=== PATIENT | female | born 1955 | race Caucasian/White ===

== ENCOUNTER 2022-01-29 06:50 | Day surgery (SDC) | payer MEDICARE, OTHER ==
[~2022-01-29] VITALS: Ht 165.1 cm; Wt 72.1 kg
[~2022-01-29 06:50] MED LIST: ASPI81CH PO; MELO7.5 PO; MELOXICAM10 MG PO; Percocet 5-3251 EACH PO
--- NOTE | 2022-01-29 13:00 | NUR ---
PT ARRIVED TO THE ROOM AT 1155. SHE IS ALERT AND ORIENTED. PT RATES PAIN AT 4/10 AND DESCRIBES PAIN ACHING. POLAR PACK IN PLACE AND FUNCTIONING. PO PAIN MEDICATION OFFERED. PT PROVIDED WITH CLEAR LIQUIDS AND CRACKERS, SHE IS TOLERATING WELL. PT IS ABLE TO MOVE BLE. TAY FROM PHYSICAL THERAPY NOTIFIED THAT PT IS READY FOR THERAPY AND IS HOPING TO DISCHARGE HOME TODAY.
[2022-01-29] MEDS ORDERED: Percocet 5-3251 EACH PO (15:15)
--- NOTE | 2022-01-29 17:01 | NUR ---
GOALS MET PT HAS CLEARED THERAPY, ABLE TO VOID, TOLERATING PO, AND PAIN MANAGED WITH PO PAIN MEDICATION. PT IS HOPING TO DISCHARGE HOME THIS EVENING. [facility] STATED OK FOR PT TO DC HOME. AWAITING ARRIVAL OF PT'S S/O FOR TRANSPORT HOME.
--- NOTE | 2022-01-29 17:20 | NUR ---
DISCHARGE PT PROVIDED WITH WRITTEN AND VERBAL DISCHARGE INSTRUCTIONS; SHE REPORTED UNDERSTANDING INSTRUCTIONS. PT PROVIDED WITH CLEAN DRESSINGS. PT MET ALL GOALS PRIOR TO DISCHARGE. PT ESCORTED OUT AT 1720 IN WHEELCHAIR.
--- NOTE | 2022-01-31 07:21 | NUR ---
01/31/22 0721 Samara Rodriguez VERIFICATIONS: EDIT CHART.
== END 2022-01-29 17:20 | disposition home or self-care (01) ==
LOC: ORSCMMR 06:50 → ORD 08:15 → ORSCMMR 08:15 → SURS 11:55 → ORSCMMR 17:20
PROVIDERS: Orthopaedic Surgery
PROC: 0SRD0JA Replacement of Left Knee Joint with Synthetic Substitute, Uncemented, Open Approach (ICD-10-PCS; principal; 2022-01-29 08:15)
DX: M17.12 Unilateral primary osteoarthritis, left knee (principal); Z96.651 Presence of right artificial knee joint; Z87.891 Personal history of nicotine dependence; Z79.899 Other long term (current) drug therapy; Z79.82 Long term (current) use of aspirin
CPT/HCPCS: 73560-LT; 97110; 97116; 97162; A9270; C1776; J0171; J0690; J0735; J1100; J1885; J2250; J2370; J2405; J2704; J2795; J3010; J7120